=== PATIENT | female | born 1990 | race Caucasian/White ===

== ENCOUNTER 2020-07-23 00:04 | Inpatient (IN) | payer OTHER ==
[~2020-07-23] VITALS: Ht 165.1 cm; Wt 98.9 kg
[~2020-07-23 00:04] MED LIST: MOTRIN IB200 MG PO; NORCO 5-325 TA1 EACH PO; PRENATAL 19 TA1 EAC1 PO; PRENATAL VITAM1 EACH PO; PROAIR HFA8.5 GM INH; TUMS300 MG PO; TYLENOL EXTRA500 MG PO
--- NOTE | 2020-07-23 08:39 | PR ---
[facility] [address] [facility] [place], [place] [address] Signed Progress Notes IP Datetime Report Generated by CPN: 07/23/2020 08:39 PROGRESS NOTES: [id number] Impression: Normal Progression of Labor Procedures: Artificial ROM Plan: Continue Present Management VITAL SIGNS: [id number] Vital Signs: Reviewed; Within Normal Limits EXAM: [id number] Dilatation: 3.0 Effacement: 75 Station: -2 Contractions: every 2-3 minutes MEMBRANES: [id number] Membranes Status: Ruptured Comments: Comfortable with contractions at this time, but would like Epidural later. FETUS A: [id number] FHR Baseline: 130 Variability: Moderate 6-25bpm Accelerations: 15X15 Presentation: Vertex FETUS B: [id number] Signing Physician: Jitendra Goins MD Copies: ~ *Electronically Signed* 07/23/20 0839 JITENDRA GOINS MD PATIENT NAME: JAZMYNE MILLER PROGRESS NOTE DATE OF : 89 PHYSICIAN: JITENRDA GOINS MD RPT #: [id number] REPORT IS CONFIDENTIAL AND NOT TO BE RELEASED WITHOUT AUTHORIZATION
--- NOTE | 2020-07-23 11:40 | PR ---
[facility] [address] [facility] [place], [place] [address] Signed Progress Notes IP Datetime Report Generated by CPN: 07/23/2020 11:40 PROGRESS NOTES: [id number] Impression: Normal Progression of Labor Procedures: Artificial ROM Plan: Continue Present Management; Anticipate Vaginal Delivery VITAL SIGNS: [id number] Vital Signs: Reviewed; Within Normal Limits EXAM: [id number] Dilatation: 10.0 Effacement: 100 Station: -1 Contractions: every 2-3 minutes MEMBRANES: [id number] Membranes Status: Ruptured Comments: Comfortable with Epidural, starting to push. FETUS A: [id number] FHR Baseline: 130 Variability: Moderate 6-25bpm Accelerations: 15X15 Presentation: Vertex FETUS B: [id number] Signing Physician: Jitendra Goins MD Copies: ~ *Electronically Signed* 07/23/20 1140 JITENDRA GOINS MD PATIENT NAME: JAZMYNE MILLER PROGRESS NOTE DATE OF : 91 PHYSICIAN: JITENDRA GOINS MD RPT #: [id number] REPORT IS CONFIDENTIAL AND NOT TO BE RELEASED WITHOUT AUTHORIZATION
--- NOTE | 2020-07-23 12:00 | PR ---
[facility] [address] [facility] [place] [address] Signed Progress Notes IP Datetime Report Generated by CPN: 07/23/2020 12:00 PROGRESS NOTES: [id number] Impression: Normal Progression of Labor Procedures: Artificial ROM Plan: Continue Present Management; Anticipate Vaginal Delivery VITAL SIGNS: [id number] Vital Signs: Reviewed; Within Normal Limits EXAM: [id number] Dilatation: 10.0 Effacement: 100 Station: -1 Contractions: every 2-3 minutes MEMBRANES: [id number] Membranes Status: Ruptured Comments: Pushing well FETUS A: [id number] FHR Baseline: 130 Variability: Moderate 6-25bpm Accelerations: 15X15 Presentation: Vertex FETUS B: [id number] Signing Physician: Jitendra Goins MD Copies: ~ *Electronically Signed* 07/23/20 1200 JITENDRA GOINS MD PATIENT NAME: JAZMYNE MILLER PROGRESS NOTE DATE OF : 91 PHYSICIAN: JITENDRA GOINS MD RPT #: [id number] REPORT IS CONFIDENTIAL AND NOT TO BE RELEASED WITHOUT AUTHORIZATION
--- NOTE | 2020-07-24 12:33 | PR ---
[facility] [address] [facility] [place] [address] Signed PP Progress Notes Datetime Report Generated by CPN: 07/24/2020 12:33 SUBJECTIVE: [id number] Pain: Within Normal Limits Nausea/Vomiting: Denies Vital Signs: [id number] Vital Signs: Reviewed; Within Normal Limits Notable Details: PP Hgb/Hct = 11.6/34.5 Abdomen/Uterus: Normal Lochia: Normal Extremities: Normal IMPRESSION/PLAN/PROCEDURES: [id number] Impression: Normal Progression Plan: Discharge Procedures: None Progress Notes: Doing well, without complaint, ready to go home Signing Physician: Jitendra Goins MD Copies: ~ *Electronically Signed* 07/24/20 1233 JITENDRA GOINS MD PATIENT NAME: JAZMYNE MILLER PROGRESS NOTE DATE OF : 91 PHYSICIAN: JITENDRA GOINS MD RPT #: [id number] REPORT IS CONFIDENTIAL AND NOT TO BE RELEASED WITHOUT AUTHORIZATION
== END 2020-07-24 14:35 | disposition home or self-care (01) | DRG 807 ==
LOC: FBC 00:04
PROVIDERS: ADMIT General Practice; ATTEND General Practice
PROC: 10E0XZZ Delivery of Products of Conception, External Approach (ICD-10-PCS; principal; 2020-07-23)
PROC: 0UQGXZZ Repair Vagina, External Approach (ICD-10-PCS; 2020-07-23)
PROC: 10907ZC Drainage of Amniotic Fluid, Therapeutic from Products of Conception, Via Natural or Artificial Opening (ICD-10-PCS; 2020-07-23)
PROC: 3E0P7VZ Introduction of Hormone into Female Reproductive, Via Natural or Artificial Opening (ICD-10-PCS; 2020-07-23)
PROC: 00HU33Z Insertion of Infusion Device into Spinal Canal, Percutaneous Approach (ICD-10-PCS; 2020-07-23)
PROC: 3E0R3BZ Introduction of Anesthetic Agent into Spinal Canal, Percutaneous Approach (ICD-10-PCS; 2020-07-23)
DX: O99.824 Streptococcus B carrier state complicating childbirth (principal); Z37.0 Single live birth; Z3A.39 39 weeks gestation of pregnancy; O71.4 Obstetric high vaginal laceration alone; O36.63X0 Maternal care for excessive fetal growth, third trimester, not applicable or unspecified; Z87.891 Personal history of nicotine dependence
CPT/HCPCS: 01960; 36415; 85027; A9270; J2540; J2795